=== PATIENT | female | born 1955 | race Caucasian/White ===

== ENCOUNTER 2016-09-13 12:36 | Emergency (ER) | payer MEDICARE, OTHER ==
--- NOTE | 2016-09-13 14:01 | ED ---
General Adult HPI - General Chief complaint: Extremity Injury, Lower Stated complaint: ankle injury/pain/swelling Time Seen by Provider: 09/13/16 13:28 Source: patient, RN notes reviewed Mode of arrival: ambulatory Limitations: no limitations - History of Present Illness Initial comments: This is a 60-year-old female presents with left ankle pain 5 days. Patient states she twisted her left ankle 5 days ago and has been using a cane to ambulate. Patient already has Bartlett at home for her chronic back pain and has been taking this for pain. Patient denies any numbness or tingling or weakness. Patient has noticed some swelling to the left ankle. Patient denies any recent fever, chills, shortness breath, chest pain, abdominal pain, nausea/ vomiting/diarrhea, back pain, hematuria, headache, or visual changes, or any other complaints. - Related Data Home Medications Medication Instructions Recorded Confirmed Asenapine Maleate [Saphris] 5 mg SL BID 09/13/16 09/13/16 Chlorthalidone [Hygroton] 25 mg PO BID 09/13/16 09/13/16 HYDROcodone/APAP 10-325MG [Bartlett 1 tab PO TID PRN 09/13/16 09/13/16 10-325] Levofloxacin [Levaquin] 500 mg PO DAILY 09/13/16 09/13/16 Meclizine [Antivert] 25 mg PO BID PRN 09/13/16 09/13/16 Nebivolol HCl [Bystolic] 10 mg PO DAILY 09/13/16 09/13/16 Vilazodone Hydrochloride [Viibryd] 40 mg PO DAILY 09/13/16 09/13/16 Zolpidem [Ambien] 5 mg PO HS 09/13/16 09/13/16 clonazePAM [KlonoPIN] 1 mg PO TID 09/13/16 09/13/16 lamoTRIgine [LaMICtal] 150 mg PO DAILY 09/13/16 09/13/16 predniSONE 10 mg PO DIRECTED 09/13/16 09/13/16 Allergies Allergy/AdvReac Type Severity Reaction Status Date / Time Sulfa (Sulfonamide Allergy Unknown Verified 09/13/16 14:21 Antibiotics) Review of Systems ROS Statement: Those systems with pertinent positive or pertinent negative responses have been documented in the HPI. ROS Other: All systems not noted in ROS Statement are negative. Past Medical History Past Medical History: Hypertension Additional Past Medical History / Comment(s): heel spurs History of Any Multi-Drug Resistant Organisms: None Reported Past Surgical History: Appendectomy, Cholecystectomy, Hysterectomy, Joint Replacement, Orthopedic Surgery, Tonsillectomy Additional Past Surgical History / Comment(s): knee replacement Past Psychological History: Anxiety, Bipolar, Depression, Panic Disorder Smoking Status: Current every day smoker Past Alcohol Use History: Occasional Past Drug Use History: None Reported General Exam - General Exam Comments Initial Comments: General: The patient is awake and alert, in no distress, and does not appear acutely ill. Neck: The neck is supple, there is no tenderness or JVD. Cardiovascular: There is a regular rate and rhythm. No murmur, rub or gallop is appreciated. Respiratory: Lungs are clear to auscultation, respirations are non-labored, breath sounds are equal. No wheezes, stridor, rales, or rhonchi. Musculoskeletal: There is tenderness to palpation of the lateral malleolus of the left ankle. There is tenderness to palpation along the lateral aspect of the left foot. There is some mild swelling over the lateral malleolus. Patient has limited range of motion due to pain, but patient was able to dorsiflex the left foot, strength 5/5 and Sensation intact. Posterior tibial pulses 2+ bilaterally. Capillary refill is normal at less than 2 seconds. Neurological: A&O x 3. CN II-XII intact, There are no obvious motor or sensory deficits. Coordination appears grossly intact. Speech is normal. Skin: Skin is warm and dry and no rashes or lesions are noted. Psychiatric: Normal mood and affect. Limitations: no limitations Course Vital Signs 09/13/16 09/13/16 12:58 14:47 Temperature 97.5 F L 98.7 F Pulse Rate 74 77 Respiratory 20 18 Rate Blood Pressure 115/53 128/78 O2 Sat by Pulse 97 Oximetry Medical Decision Making - Medical Decision Making This is a 60-year-old female presents with left ankle pain 5 days. Patient is ambulating using a cane. On physical exam There is tenderness to palpation of the lateral malleolus of the left ankle. There is tenderness to palpation along the lateral aspect of the left foot. There is some mild swelling over the lateral malleolus. Patient has limited range of motion due to pain, but patient was able to dorsiflex the left foot, strength 5/5 and Sensation intact. Posterior tibial pulses 2+ bilaterally. Capillary refill is normal at less than 2 seconds. X-rays of the left foot and ankle were done and reviewed showing: X-ray left ankle:Soft tissue swelling and sequela of old injury below the lateral malleolus. No acute osseous abnormality seen. Reported by Dr. Lake. X-ray left foot: No acute osseous abnormality seen. Reported by Dr. Lake. Discussed results with patient. Discussed rest, ice, elevate and use of Aircast while up and walking. I discussed possibility for use of crutches, the patient states she has a walker and a cane at home that she prefers to use. I discussed weight bearing as tolerated and range of motion exercises. Discussed occult fracture. Discussed Tylenol and Motrin as needed for pain. Discussed return parameters.Discussed that patient should follow up with PCP in one to 2 days or return to the [facility] for any worsening symptoms or for any further concerns. Patient was receptive to this plan and patient will be discharged home. Disposition Clinical Impression: Ankle sprain Disposition: HOME SELF-CARE Condition: Good Instructions: Ankle Sprain (ED) Additional Instructions: Please rest, ice, elevate and use air cast and Trung wrap for compression and support while up and walking. Weightbearing as tolerated. Please perform range of motion exercises such as drawing the ABCs with your left foot periodically throughout the day. Please use Tylenol and/or Motrin as needed for the pain.If symptoms do not improve in the next 7 days repeat x-rays may be needed to rule out occult fracture.Please use medication as discussed. Please follow-up with family doctor in the next 2 days of symptoms have not improved. Please return to emergency room if the symptoms increase or worsen or for any other concerns. Referrals: Benjamin Harris MD [Primary Care Provider] - 1-2 days Time of Disposition: 14:32
--- NOTE | 2016-09-13 14:21 | XR ---
EXAMINATION TYPE: XR ankle complete LT DATE OF EXAM: 09/13/2016 2:07 PM COMPARISON: 01/30/2016 HISTORY: 60-year-old female twisting injury 4 days ago, pain TECHNIQUE: 3 views FINDINGS: Ankle mortise remains congruent with preservation of the distal tibiofibular overlap. Ossific density below the lateral malleolus was present previously. There is circumferential soft tissue swelling es pecially laterally and anteriorly with suggestion of underlying anterior tibiotalar joint effusion. S ubtalar joint is aligned. No delineation to the Achilles tendon. No acute fracture or dislocation see n. IMPRESSION: Soft tissue swelling and sequela of old injury below the lateral malleolus. No acute osseous abnormal ity seen.
--- NOTE | 2016-09-13 14:22 | XR ---
EXAMINATION TYPE: XR foot complete LT DATE OF EXAM: 09/13/2016 2:07 PM COMPARISON: NONE HISTORY: 60-year-old female twisting injury 4 days ago and pain TECHNIQUE: 3 views FINDINGS: No acute fracture, subluxation, or dislocation is identified. Joint spaces are relatively maintained. IMPRESSION: No acute osseous abnormality seen.
[2016-09-13 14:48] VITALS: BP 128/78; PULSE 77; RESP 18; TEMP 98.7
== END 2016-09-13 14:47 | disposition home or self-care (01) ==
LOC: EC 12:36
DX: S93.402A Sprain of unspecified ligament of left ankle, initial encounter (principal); G89.29 Other chronic pain; M54.9 Dorsalgia, unspecified; I10 Essential (primary) hypertension; F32.9 Major depressive disorder, single episode, unspecified; F41.0 Panic disorder [episodic paroxysmal anxiety]; F41.9 Anxiety disorder, unspecified; F31.9 Bipolar disorder, unspecified; F17.200 Nicotine dependence, unspecified, uncomplicated; X50.1XXA Overexertion from prolonged static or awkward postures, initial encounter; Z79.891 Long term (current) use of opiate analgesic; Z79.899 Other long term (current) drug therapy; Z88.2 Allergy status to sulfonamides; Z79.52 Long term (current) use of systemic steroids
CPT/HCPCS: 99283; 73610; 73630; L4350

== ENCOUNTER 2016-10-23 20:31 | Emergency (ER) | payer MEDICARE, OTHER ==
[2016-10-23] MEDS ORDERED: HYDROcodone/APAP 5-325MG 1 EACH TAB PO STA (21:41)
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
[2016-10-23 23:50] VITALS: BP 141/62; PULSE 78; RESP 18; TEMP 98
== END 2016-10-23 23:10 | disposition home or self-care (01) ==
LOC: EC 20:31
DX: S00.33XA Contusion of nose, initial encounter (principal); I10 Essential (primary) hypertension; F31.9 Bipolar disorder, unspecified; F41.9 Anxiety disorder, unspecified; F41.0 Panic disorder [episodic paroxysmal anxiety]; F17.200 Nicotine dependence, unspecified, uncomplicated; Z79.52 Long term (current) use of systemic steroids; Z79.899 Other long term (current) drug therapy; Z88.2 Allergy status to sulfonamides; Y04.0XXA Assault by unarmed brawl or fight, initial encounter; Y92.009 Unspecified place in unspecified non-institutional (private) residence as the place of occurrence of the external cause
CPT/HCPCS: 70486; 99283

== ENCOUNTER 2016-12-29 04:14 | Emergency (ER) | payer MEDICARE, OTHER ==
[2016-12-29 04:22] VITALS: BP 127/61; PULSE 61; RESP 16; TEMP 97.3
[2016-12-29] MEDS ORDERED: traMADol 50 MG STARTER PACK 3 TAB BTL PO STA (04:31)
[2016-12-29] MEDS ORDERED: IBUPROFEN 600 MG TAB PO STA (04:31)
--- NOTE | 2016-12-29 04:31 | ED ---
Extremity Problem HPI - General Chief complaint: Extremity Problem,Nontraumatic Stated complaint: left ankle pain Time Seen by Provider: 12/29/16 04:24 Source: patient Mode of arrival: ambulatory Limitations: no limitations - History of Present Illness Initial comments: This patient is a 61-year-old woman who presents to be evaluated for left foot pain. The patient states that she has been having these pains intermittently for one year since she had a broken bone in her foot. The patient states that she was treated with a walking boot which she uses when the pain flares up. The patient states that she follows with Dr. Weeks, who is sending her to see a foot press operator on Monday. Patient states that she spent a lot of time on her foot today and so the pain is flaring up. Patient states she is mainly in today Because she has run out of medication to help with the pain, and she has nothing at home to take. The patient denies any new trauma. She rates the pain as aching, moderate to severe, worse when she is known a lot of walking, better when she rests her foot she is not having any weakness or numbness. MD Complaint: extremity pain Onset/Timin -: year(s) Location: left, other (Foot) History of Same: Yes Radiation: none Quality: aching Consistency: intermittent Improves with: rest Worsens with: weight bearing, walking Associated Symptoms: denies other symptoms - Related Data Home Medications Medication Instructions Recorded Confirmed Asenapine Maleate [Saphris] 5 mg SL BID 09/13/16 09/13/16 Chlorthalidone [Hygroton] 25 mg PO BID 09/13/16 09/13/16 HYDROcodone/APAP 10-325MG [[place]den 1 tab PO TID PRN 09/13/16 09/13/16 10-325] Levofloxacin [Levaquin] 500 mg PO DAILY 09/13/16 09/13/16 Meclizine [Antivert] 25 mg PO BID PRN 09/13/16 09/13/16 Nebivolol HCl [Bystolic] 10 mg PO DAILY 09/13/16 09/13/16 Vilazodone HCl [Viibryd] 40 mg PO DAILY 09/13/16 09/13/16 Zolpidem [Ambien] 5 mg PO HS 09/13/16 09/13/16 clonazePAM [KlonoPIN] 1 mg PO TID 09/13/16 09/13/16 lamoTRIgine [LaMICtal] 150 mg PO DAILY 09/13/16 09/13/16 predniSONE 10 mg PO DIRECTED 09/13/16 09/13/16 Previous Rx's Medication Instructions Recorded Ibuprofen [Motrin] 600 mg PO Q8HR PRN #20 tab 12/29/16 traMADol HCl [Ultram] 50 mg PO Q6H PRN #20 tab 12/29/16 Allergies Allergy/AdvReac Type Severity Reaction Status Date / Time Sulfa (Sulfonamide Allergy Unknown Verified 12/29/16 04:22 Antibiotics) Review of Systems ROS Statement: Those systems with pertinent positive or pertinent negative responses have been documented in the HPI. ROS Other: All systems not noted in ROS Statement are negative. Constitutional: Denies: fever, chills Musculoskeletal: Reports: as per HPI, joint swelling, arthralgia Skin: Denies: rash, lesions Neurological: Denies: weakness, numbness, paresthesias Past Medical History Past Medical History: Hypertension Additional Past Medical History / Comment(s): heel spurs History of Any Multi-Drug Resistant Organisms: None Reported Past Surgical History: Appendectomy, Cholecystectomy, Hysterectomy, Joint Replacement, Orthopedic Surgery, Tonsillectomy Additional Past Surgical History / Comment(s): knee replacement Past Psychological History: Anxiety, Bipolar, Depression, Panic Disorder Smoking Status: Current every day smoker Past Alcohol Use History: Occasional Past Drug Use History: None Reported General Exam Limitations: no limitations General appearance: alert, in no apparent distress Head exam: Present: atraumatic, normocephalic Extremities exam: Present: normal inspection, normal capillary refill. Absent: pedal edema, calf tenderness Left Lower Leg exam: Present: normal inspection. Absent: tenderness, swelling Ankle exam: Present: normal inspection. Absent: tenderness, swelling Foot/Toe exam: Present: normal inspection, full ROM, tenderness. Absent: swelling, abrasion, laceration, ecchymosis, deformity, crepitus, dislocation, erythema, amputation, calcaneal tenderness, tenderness at base of 5th metatarsal Neurovascular tendon exam: Absent: no vascular compromise, pulse deficit, abnormal cap refill, motor deficit, sensory deficit, tendon deficit, extremity cold to touch, pallor, abnormal 2-point discrimination, decreased fine/light touch, foot drop, peroneal nerve deficit, significant pain with passive ROM of distal joint Course Vital Signs 12/29/16 04:20 Temperature 97.3 F L Pulse Rate 61 Respiratory 16 Rate Blood Pressure 127/61 O2 Sat by Pulse 95 Oximetry Medical Decision Making - Medical Decision Making Patient is a 61-year-old woman with approximately one year of intermittent foot pains with activity. She has been referred by her orthopedic physician to see podiatry and will be seeing them and little over 24 hours. She does have an orthopedic boot that she will be worn until then. We'll provide some analgesia to help with pains until that time, and discussed return parameters should there be any change. Disposition Clinical Impression: Foot pain, left Disposition: HOME SELF-CARE Condition: Fair Instructions: Arthralgia (ED) Prescriptions: Ibuprofen [Motrin] 600 mg PO Q8HR PRN #20 tab PRN Reason: Pain traMADol HCl [Ultram] 50 mg PO Q6H PRN #20 tab PRN Reason: Pain Referrals: Benjamin Harris MD [Primary Care Provider] - 1-2 days See Gilmore DPM [STAFF PHYSICIAN] - 1-2 days
== END 2016-12-29 04:42 | disposition home or self-care (01) ==
LOC: EC 04:14
DX: M79.672 Pain in left foot (principal); I10 Essential (primary) hypertension; F31.9 Bipolar disorder, unspecified; F17.200 Nicotine dependence, unspecified, uncomplicated; Z79.52 Long term (current) use of systemic steroids; Z79.899 Other long term (current) drug therapy; Z88.2 Allergy status to sulfonamides
CPT/HCPCS: 99283

== ENCOUNTER → 2017-05-29 | Outpatient (CLI) | payer MEDICARE, OTHER ==
--- NOTE | 2017-05-29 16:28 | XR ---
EXAMINATION TYPE: XR lumbar spine 2 or 3V DATE OF EXAM: 05/29/2017 COMPARISON: NONE HISTORY: 61-year-old female with low back pain TECHNIQUE: 3 views FINDINGS: 5 lumbar type vertebral bodies. Hypertrophic facet arthropathy mid to lower lumbar spine. Alignment i s maintained. Vertebral body heights are preserved. Mild endplate spondylosis throughout. Vascular calcifications throughout the abdominal aorta. IMPRESSION: Mild degenerative disc disease lower lumbar spine. Advanced hypertrophic facet arthropathy mid to low er lumbar spine. No vertebral compression collapse or malalignment.
== END | disposition home or self-care (01) ==
LOC: MERGE 14:51 → RADXRMAIN 14:51
PROVIDERS: ATTEND Physician Assistant
DX: M51.36 Other intervertebral disc degeneration, lumbar region (principal); M46.86 Other specified inflammatory spondylopathies, lumbar region
CPT/HCPCS: 72100